=== PATIENT | female | born 1995 | race Native Hawaiian/Other Pacific Islander ===

== ENCOUNTER 2018-08-17 20:44 | Emergency (ER) | payer OTHER ==
[2018-08-17] MEDS ORDERED: ZOFRAN IV ONE (21:29)
[2018-08-17] MEDS ORDERED: NACL 0.9% 1000 ML 1,000 ML IV ONE (21:29)
[2018-08-17] MEDS ORDERED: MORPHINE IM ONE (21:29)
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
[2018-08-17 21:56] LABS: Basophils % (Auto) 0.3 % (0.0-1.8); Eosinophils % (Auto) 0.1 % (0.0-4.3); Hematocrit 37.3 % (30.3-42.9); Hemoglobin 12.8 gm/dl (10.1-14.3); Lymphocytes # (Auto) 1.3 K/mm3 (1.2-5.4); Lymphocytes % (Auto) 8.6 % (13.4-35.0); Mean Corpuscular HGB Conc 34 % (30-34); Mean Corpuscular Volume 86 fl (79-97); Monocytes # (Auto) 0.7 K/mm3 (0.0-0.8); Monocytes % (Auto) 4.8 % (0.0-7.3); Platelet Count 215 K/mm3 (140-440); Red Blood Count 4.33 M/mm3 (3.65-5.03); Red Cell Distribution Width 14.4 % (13.2-15.2)
[2018-08-17 22:16] LABS: BUN/Creatinine Ratio 20; Blood Urea Nitrogen 10 mg/dL (7-17); Calcium 8.5 mg/dL (8.4-10.2); Hemolysis Index 3
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
[2018-08-18 01:21] VITALS: BP 131/79
== END 2018-08-18 01:20 | disposition home or self-care (01) ==
LOC: ED 20:44
DX: S62.232A Other displaced fracture of base of first metacarpal bone, left hand, initial encounter for closed fracture (principal); S09.90XA Unspecified injury of head, initial encounter; R10.9 Unspecified abdominal pain; V43.52XA Car driver injured in collision with other type car in traffic accident, initial encounter; Y93.89 Activity, other specified; Y92.488 Other paved roadways as the place of occurrence of the external cause; Y99.8 Other external cause status
CPT/HCPCS: 29125; 36415; 70450; 71260; 72125; 73120; 74177; 80048; 84703; 85025; 96372; 96374; 99285; J2270; J2405; J7030; Q9967

== ENCOUNTER 2018-09-20 09:59 | Outpatient (CLI) | payer BC ==
--- NOTE | 2018-09-20 11:29 | XRay Report ---
Left thumb 4 views: Compared to 08/17/18. History: Nondisplaced fracture proximal phalanx of left thumb. Findings There is nondisplaced fracture noted at the base of the metacarpal. Minimal callus formation is noted compared to previous study. Incomplete healing is noted. No displacement. No dislocation. Impression: Findings as detailed above.
== END 2018-09-20 10:00 | disposition home or self-care (01) ==
LOC: XRAY 09:59
PROVIDERS: ATTEND Orthopaedic Surgery
DX: S62.515A Nondisplaced fracture of proximal phalanx of left thumb, initial encounter for closed fracture (principal); X58.XXXA Exposure to other specified factors, initial encounter; Y93.89 Activity, other specified; Y92.89 Other specified places as the place of occurrence of the external cause; Y99.8 Other external cause status